=== PATIENT | female | born 1935 | race Caucasian/White ===

== ENCOUNTER 2017-02-21 16:11 | Emergency (ER) | payer OTHER ==
[~2017-02-21] VITALS: Ht 149.9 cm; Wt 57.8 kg
[~2017-02-21 16:11] MED LIST: ADV10050 INHALATION; ALBU18HF INHALATION; AMO500 PO; APIX2.5T PO; DILT240C79 PO; FURO40TA4 PO; GABA300C16 PO; HYOS0.1212 SL; IPRA12.93 INHALATION; LOSA50TA6 PO; LUBI24CA7 PO; METR250T19 PO; MOME13HF INHALATION; SULF500T5 PO; TYL500 PO
[2017-02-21 16:14] VITALS: Ht 149.9 cm; Wt 57.8 kg
[2017-02-21] MEDS ORDERED: DILT240C62 PO (17:49)
[2017-02-21] MEDS ORDERED: ONDA4TAB8 PO (17:50)
[2017-02-21] MEDS ORDERED: HYDR4TAB PO (17:51)
[2017-02-21] MEDS ORDERED: IPRA12.93 INHALATION (17:58)
[2017-02-21] MEDS ORDERED: ONDANSETRON 4 MG INJ IV STA (18:05)
[2017-02-21] MEDS ORDERED: morphine 4 MG/ML VIAL IV STA (18:05)
--- NOTE | 2017-02-21 18:05 | ERA ---
ER Documentation Chief Complaint Date/Time DATE: 02/21/17 TIME: 17:50 Chief Complaint Reporting back pain and bilateral leg pain x3 years, worse today. HPI 81-year-old female with a history of hypertension, pulmonary hypertension, chronic diastolic heart failure, COPD, GERD, chronic atrial fib on Eliquis and chronic, intractable low back pain brought to the ED by family for evaluation of back pain. Sharp, severe, right greater than left lower back pain which radiates around the left to the left lower quadrant. As per daughter the patient has had multiple previous ED visits and admissions [facility] for intractable pain but now presents for intractable pain and a "second opinion ". Pain is exacerbated by movement. No relieving factors including [place]. MRI done 12/01/2016 reveals no evidence of acute or chronic compression fractures. L4-L5, L5-S1 disc bulging with foraminal stenosis. Chronic left lower than right lower extremity swelling and pain. Denies shortness of breath , palpitations or chest pain. Mild nausea but no vomiting, diarrhea or constipation. Denies dysuria, polyuria, hematuria or flank pain. No fevers or chills. ROS All systems reviewed and are negative except as per history of present illness. Medications Home Meds Reported Medications Ipratropium [place]* (Atrovent HFA*) 12.9 Gm Aer.w.adap, 2 PUFF INHALATION Q4H for SHORTNESS OF BREATH, #1 INHALER 02/21/17 Hydromorphone Hcl* (Hydromorphone Hcl*) 4 Mg Tablet, 4 MG PO DAILY Y for PAIN, TAB 02/21/17 Ondansetron Hcl* (Zofran*) 4 Mg Tablet, 4 MG PO Q6H Y for NAUSEA AND OR VOMITING , TAB 02/21/17 Diltiazem Hcl* (Cartia XT*) 240 Mg Cap.sr.24h, 240 MG PO DAILY, #30 CAP 02/21/17 Losartan Potassium* (Losartan Potassium*) 50 Mg Tablet, 50 MG PO DAILY, TAB 08/09/16 Mometasone-Formoterol (Dulera) 200-5 Mcg/Inh - 13 Gm Hfa.aer.ad, 2 PUFFS INHALATION BID, #1 INHALER 08/09/16 Apixaban* (Eliquis*) 2.5 Mg Tablet, 2.5 MG PO BID, TAB 08/09/16 Albuterol Sulfate* (Ventolin HFA*) 18 Gm Hfa.aer.ad, 2 PUFF INHALATION Q6H for SHORTNESS OF BREATH, #1 INHALER 08/09/16 Discontinued Reported Medications Metronidazole* (Metronidazole*) 250 Mg Tablet, 250 MG PO Q6, TAB 08/09/16 Ipratropium [place]* (Atrovent HFA*) 12.9 Gm Aer.w.adap, 2 PUFF INHALATION QID, #1 INHALER 08/09/16 Furosemide* (Furosemide*) 40 Mg Tablet, 40 MG PO DAILY, TAB 08/09/16 Salmeterol Xinaf-Fluticasone* (Advair*) 100/50 Diskus Inhaler, 1 INH INHALATION BID, #1 INHALER 08/09/16 Diltiazem Hcl* (Cardizem CD*) 240 Mg Cap.sr.24h, 240 MG PO DAILY, #30 CAP 08/09/16 Amoxicillin* (Amoxicillin*) 500 Mg Cap, 500 MG PO BID, #20 CAP 08/09/16 Acetaminophen* (Tylenol*) 500 Mg Tab, 500 MG PO Q4H Y for MILD PAIN LEVEL 1-3, TAB 08/09/16 Lubiprostone* (Amitiza*) 24 Mcg Capsule, 24 MCG PO BID, #60 CAP 08/09/16 Sulfasalazine* (Sulfazine*) 500 Mg Tablet, 500 MG PO DAILY, TAB 08/09/16 Hyoscyamine Sulfate* (Hyoscyamine Sulfate*) 0.125 Mg Tab.subl, 0.125 MG SL TID, TAB 08/09/16 Gabapentin* (Gabapentin*) 300 Mg Capsule, 300 MG PO TID, #90 CAP 08/09/16 Allergies Allergies: Coded Allergies: No Known Drug Allergies (Verified Allergy, Unknown, 02/21/17) PMhx/Soc Reviewed in chart. As per HPI. Lives with family. DNR/DNI as per prior medical records of [place]. History of Surgery: Yes (Appendectomy) Hx Neurological Disorder: Yes (Postherpetic neuralgia) Hx Respiratory Disorders: Yes (COPD/asthma) Hx Cardiac Disorders: Yes (Chronic diastolic heart failure, hypertension, pulmonary hypertension, atrial fibrillation) Hx Psychiatric Problems: Yes Hx Alcohol Use: No Hx Substance Use: No Hx Tobacco Use: No FmHx Diabetes but no stroke or cancer Physical Exam Vitals Vital Signs Date Time Temp Pulse Resp B/P Pulse Ox O2 Delivery O2 Flow Rate FiO2 02/21/17 21:00 54 18 145/44 97 Room Air 02/21/17 19:00 55 18 159/55 98 Room Air 02/21/17 16:14 96.6 72 24 193/79 97 Physical Exam Const: Alert, elderly in moderate to severe distress due to pain. Head: Atraumatic Eyes: Normal Conjunctiva ENT: Normal External Ears, Nose and Mouth. Pharynx is clear. Mucous members are dry Neck: Full range of motion. Nontender. No JVD. Resp: Breath sounds are diminished but clear to auscultation bilaterally Cardio: Irregular rate and rhythm, no murmurs Abd: Soft, mild, diffuse, left-sided tenderness but no rebound or guarding. No masses or abnormal pulsations. Bowel sounds are present. Skin: Multiple ecchymosis especially on the left upper extremity and left lower extremity Back: Diffuse lumbar tenderness and paraspinal muscle tenderness. No step- offs. Ext: Left calf swelling and tenderness with ecchymosis. Neur: Awake and alert. Cranial nerves are grossly intact. Psych: Anxious. Result Diagram: 02/21/17 18502/21/17 185 Results 24 hrs Laboratory Tests Test 02/21/17 18:51 White Blood Count 8.210^3/ul Red Blood Count 3.9710^6/ul Hemoglobin 12.6g/dl Hematocrit 37.9% Mean Corpuscular Volume 95.5fl Mean Corpuscular Hemoglobin 31.7pg Mean Corpuscular Hemoglobin Concent 33.2g/dl Red Cell Distribution Width 15.8% Platelet Count 86968^3/UL Mean Platelet Volume 9.1fl Neutrophils % 77.8% Lymphocytes % 10.2% Monocytes % 6.7% Eosinophils % 0.1% Basophils % 0.4% Nucleated Red Blood Cells % 0.4/100WBC Neutrophils # 6.310^3/ul Lymphocytes # 0.810^3/ul Monocytes # 0.610^3/ul Eosinophils # 0.010^3/ul Basophils # 0.010^3/ul Nucleated Red Blood Cells # 0.010^3/ul Urine Color LT. YELLOW Urine Clarity SLIGHTLY CLOUDY Urine pH 5.5 Urine Specific [place] >=1.030 Urine Ketones NEGATIVE Urine Nitrite NEGATIVE Urine Bilirubin NEGATIVE Urine Urobilinogen 0.2 E.U./dL Urine Leukocyte Esterase TRACE Urine Microscopic RBC 0-2/HPF Urine Microscopic WBC 2-5/HPF Urine Squamous Epithelial Cells MODERATE Urine Calcium Oxalate Crystals MANY Urine Bacteria FEW Urine Hemoglobin TRACE Urine Glucose >=1000% Urine Total Protein NEGATIVE Sodium Level 130mmol/L Potassium Level 4.5mmol/L Chloride Level 95mmol/L Carbon Dioxide Level 27mmol/L Anion Gap 13 Blood Urea Nitrogen 25mg/dl Creatinine 0.46mg/dl Glucose Level 212mg/dl Calcium Level 9.5mg/dl Total Bilirubin 0.3mg/dl Direct Bilirubin 0.00mg/dl Indirect Bilirubin 0.3mg/dl Aspartate Amino Transf (AST/SGOT) 53IU/L Alanine Aminotransferase (ALT/SGPT) 47IU/L Alkaline Phosphatase 88IU/L Troponin I < 0.010ng/ml Total Protein 6.4g/dl Albumin 4.6g/dl Globulin 1.80g/dl Albumin/Globulin Ratio 2.55 Current Medications Medications (Trade) Dose Ordered Sig/Anoop Route PRN Reason Start Time Stop Time Status Last Admin Dose Admin Morphine Sulfate (morphine) 4 mg ONCE STAT IV 02/21/17 18:05 02/21/17 18:08 DC 02/21/17 18:54 Ondansetron HCl (Zofran Inj) 4 mg ONCE STAT IV 02/21/17 18:05 02/21/17 18:08 DC 02/21/17 18:53 PROCEDURE: US Lower extremity Venous. CLINICAL INDICATION: Left leg edema TECHNIQUE: Multiple sonographic images of the left lower extremity deep venous system was obtained utilizing grayscale, color-flow, compressive sonography and doppler imaging with augmentation. The images were reviewed on a PACS workstation. COMPARISON: None. FINDINGS: There is normal compressibility and flow within the left common femoral, femoral , posterior tibial, and popliteal veins. The left peroneal vein was not seen. There is free fluid in the popliteal fossa region. RPTAT: AA IMPRESSION: No sonographic evidence for deep venous thrombosis. Free fluid in the left popliteal fossa region. Peroneal vein is not seen. .Sj Lomeli MD, MD Date Time Electronically viewed and signed by .Sj Lomeli MD, MD on 02/21/2017 20: 14 .S/ PROCEDURE: XR Chest. CLINICAL INDICATION: CHF. TECHNIQUE: Single AP portable chest COMPARISON: None. FINDINGS: Mild cardiomegaly. Atherosclerotic calcification of the aorta. Mild vascular congestion and small pleural effusions compatible with mild CHF. No pneumothorax. Incidental note is made of a calcific tendinosis of the right supraspinatus tendon. IMPRESSION: 1. Mild CHF. . RPTAT:AAJJ Physician Denia Date Time Electronically viewed and signed by Physician Denia on 02/21/2017 19:14 XIOMARA/ EKG:Time:18:54. Atrial fibrillation. Ventricular rate is 57. Occasional premature aberrantly conducted beats. Poor R-wave progression leads V1 through V3. No acute ST segment elevation or depression. EP interpretation: Abnormal ECG Procedures/MDM DOCUMENTS REVIEWED: ED nurse prior hospital records from [place] including MRI report. ED COURSE: Morphine 4mg, Zofran 4mg REEXAMINATION/REEVALUATION: Time: 21:20. Doing well. Feels better. Pain decreased. MEDICAL DECISION MAKIN-year-old female with a history of hypertension, pulmonary hypertension, chronic diastolic heart failure, COPD, GERD, chronic atrial fib on Eliquis and chronic, intractable low back pain brought to the ED by family for evaluation of back pain. Patient with multiple prior workups and admissions. Recent MRI as documented. broad differential includes but is not limited to spinalstrain, disc herniation, sciatica, spinal stenosis, urinary tract infection, pyelonephritis, chronic back pain, contusion, DJD, vertebral fracture, shingles, renal stone, compression fracture, pancreatitis, discitis, epidural abscess, osteomyelitis,osteoporosis, ankylosing spondylitis, drug seeking behavior, metastatic cancer, pneumonia, TB, Cauda [place], AAA, infection, malignancy, GI, and vascular etiologies have been considered but patient's clinical presentation and history are most consistent with a musculoskeletal cause. There is neither evidence of any acute neurologic damage , nor loss of function and thus, advanced imaging studies have been deferred. Patient will be treated conservatively with appropriate pain control. Stable for discharge with precautionary discharge instructions provided and urgent outpatient followup as counseled. Counseled patient and family regarding diagnosis, diagnostic results and plan for admission. 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
[2017-02-21 19:01] LABS: ADD SCAN DIFF NO
[2017-02-21 19:04] LABS: BASOPHILS % 0.4 % (0.0-2.0); EOSINOPHILS % 0.1 % (0.0-7.0); HEMATOCRIT 37.9 % (37.0-47.0); HEMOGLOBIN 12.6 g/dl (12.0-16.0); LYMPHOCYTES # 0.8 10^3/ul (0.8-2.9); LYMPHOCYTES % 10.2 % (15.0-51.0); MEAN CORPUSCULAR HEMOGLOBIN 31.7 pg (29.0-33.0); MEAN CORPUSCULAR HGB CONC 33.2 g/dl (32.0-37.0); MEAN CORPUSCULAR VOLUME 95.5 fl (82.0-101.0); MEAN PLATELET VOLUME 9.1 fl (7.4-10.4); MONOCYTE # 0.6 10^3/ul (0.3-0.9); MONOCYTES % 6.7 % (0.0-11.0); NEUTROPHIL # 6.3 10^3/ul (1.6-7.5); NEUTROPHILS % 77.8 % (39.0-77.0); NUCLEATED RED BLOOD CELLS% 0.4 /100WBC (0.0-0.0); PLATELET COUNT 204 10^3/UL (140-415); RED BLOOD COUNT 3.97 10^6/ul (4.20-5.40); RED CELL DISTRIBUTION WIDTH 15.8 % (11.5-14.5); WHITE BLOOD COUNT 8.2 10^3/ul (4.8-10.8)
[2017-02-21 19:05] LABS: ADD UMIC YES; UR BILIRUBIN (Dip) NEGATIVE (NEGATIVE); UR BLOOD (Dip) TRACE (NEGATIVE); UR CLARITY SLIGHTLY CLOUDY (CLEAR); UR COLOR LT. YELLOW (YELLOW); UR GLUCOSE (Dip) >=1000 % (NEGATIVE); UR KETONES (Dip) NEGATIVE (NEGATIVE); UR LEUKOCYTE ESTERASE (Dip) TRACE (NEGATIVE); UR NITRITE (Dip) NEGATIVE (NEGATIVE); UR TOTAL PROTEIN (Dip) NEGATIVE (NEGATIVE); UR UROBILINOGEN (Dip) 0.2 E.U./dL (0.1-1.0)
--- NOTE | 2017-02-21 19:14 | RADRPT ---
PROCEDURE: XR Chest. CLINICAL INDICATION: CHF. TECHNIQUE: Single AP portable chest COMPARISON: None. FINDINGS: Mild cardiomegaly. Atherosclerotic calcification of the aorta. Mild vascular congestion and small pleural effusions compatible with mild CHF. No pneumothorax. Incidental note is made of a calcific t endinosis of the right supraspinatus tendon. IMPRESSION: 1. Mild CHF. . RPTAT:AAJJ Agueda Melara Physician Date Time Electronically viewed and signed by Agueda Melara Physician on 02/21/2017 19:14 XIOMARA/
[2017-02-21 19:19] LABS: BACTERIA,URINE FEW; UR SQUAMOUS EPITHELIAL CELL MODERATE; URINE RBCS 0-2 /HPF (0)
--- NOTE | 2017-02-21 20:14 | RADRPT ---
PROCEDURE: US Lower extremity Venous. CLINICAL INDICATION: Left leg edema TECHNIQUE: Multiple sonographic images of the left lower extremity deep venous system was obtained utilizing grayscale, color-flow, compressive sonography and doppler imaging with augmentation. The images were reviewed on a PACS workstation. COMPARISON: None. FINDINGS: There is normal compressibility and flow within the left common femoral, femoral, posterior tibial, and popliteal veins. The left peroneal vein was not seen. There is free fluid in the popliteal fossa region. RPTAT: AA IMPRESSION: No sonographic evidence for deep venous thrombosis. Free fluid in the left popliteal fossa region. Peroneal vein is not seen. .Sj Lomeli MD, MD Date Time Electronically viewed and signed by .Sj Lomeli MD, MD on 02/21/2017 20:14 .S/
[2017-02-21 21:00] VITALS: BP 145/44; PULSE 54; RESP 18
[2017-02-21 21:18] LABS: CHLORIDE 95 mmol/L (97-110); POTASSIUM 4.5 mmol/L (3.5-5.1); SODIUM 130 mmol/L (135-144)
[2017-02-21 21:19] LABS: ANION GAP 13 (8-16); BLOOD UREA NITROGEN 25 mg/dl (7-20); CARBON DIOXIDE 27 mmol/L (21-31); CREATININE 0.46 mg/dl (0.44-1.00); GLUCOSE 212 mg/dl (70-220)
[2017-02-21 21:21] LABS: CALCIUM 9.5 mg/dl (8.4-10.2)
[2017-02-21 21:42] LABS: ALANINE AMINOTRANSFERASE 47 IU/L (13-69); ALKALINE PHOSPHATASE 88 IU/L (42-121); ASPARTATE AMINO TRANSFERASE 53 IU/L (15-46); BILIRUBIN,TOTAL 0.3 mg/dl (0.2-1.3)
[2017-02-21 21:43] LABS: ALBUMIN 4.6 g/dl (3.3-4.9); ALBUMIN/GLOBULIN RATIO 2.55; TOTAL PROTEIN 6.4 g/dl (6.1-8.1)
[2017-02-21 21:48] LABS: TROPONIN-I < 0.010 ng/ml (0.00-0.12)
[2017-02-21 21:49] LABS: BILIRUBIN,INDIRECT 0.3 mg/dl (0-1.1)
== END 2017-02-21 22:10 | disposition home or self-care (01) ==
LOC: E/R 16:11
DX: M54.5 Low back pain (principal); I48.2 Chronic atrial fibrillation; I50.42 Chronic combined systolic (congestive) and diastolic (congestive) heart failure; I10 Essential (primary) hypertension; J44.9 Chronic obstructive pulmonary disease, unspecified; J45.909 Unspecified asthma, uncomplicated; Z79.01 Long term (current) use of anticoagulants
CPT/HCPCS: 71010; 80053; 81001; 84484; 85025; 93005; 93971; J2270; J2405; 96374; 96375